=== PATIENT | female | born 1950 | race Caucasian/White ===

== ENCOUNTER 2016-04-02 17:31 | Inpatient (IN) | payer OTHER ==
[~2016-04-02] VITALS: Ht 157.5 cm; Wt 49.9 kg
[~2016-04-02 17:31] MED LIST: ALENDRONATE SOD70 M2 PO; CALCIUM 500 +1 EAC5 PO; CO Q-10100 MG PO; LEVOTHYROXINE25 MCG PO; LEVOTHYROXINE50 MCG PO; RED YEAST RICE600 M1 PO; VITAMIN B-121000 MC3 PO; VITAMIN C500 M7 PO; VITAMIN D3400 UNI1 PO
--- NOTE | 2016-04-02 17:48 | NUR ---
PT STATES HER DOG BIT HER THIS AMD AND SHE WENT TO THE URGENT CARE AND WAS GIVEN AUGMENTIN 875 AND TOOK ONE PILL. PT STATES HER FINGER IS MORE SWOLLEN AND RED. PT STATES HER DOG WAS UP TO DATE WITH HIS VACCINATIONS.
--- NOTE | 2016-04-02 18:11 | NUR ---
APPRECIATE TRIAGE NOTE. PT AMBULATORY TO ROOM 5. AWAITING PROVIDER EVAL.
--- NOTE | 2016-04-02 19:05 | NUR ---
BLOOD DRAWN AND SENT TO THE LAB 2 SETS OF CULTURES CBC
--- NOTE | 2016-04-02 19:12 | RADIOLOGY REPORT ---
EXAMINATION: XR HAND, LEFT CLINICAL INFORMATION: Status post dog bite COMPARISON: None TECHNIQUE: AP, lateral, and oblique views of the left hand. FINDINGS: There are mild degenerative changes at the involving the DIP joint of the third digit. The bones and soft tissues are unremarkable. No fracture. Alignment is anatomic. Joint spaces are maintained. No erosions or soft tissue calcifications. IMPRESSION: No radiographic evidence for acute injury involving the left hand.
[2016-04-02 19:14] LABS: ABSOLUTE BASOPHIL COUNT 0 /CUMM (0.0-0.2); ABSOLUTE EOSINOPHIL COUNT 0 /CUMM (0.0-0.7); ABSOLUTE GRANULOCYTE CT 6.1 /CUMM (1.4-6.5); ABSOLUTE LYMPH COUNT 0.9 /CUMM (1.2-3.4); ABSOLUTE MONOCYTE COUNT 0.7 /CUMM (0.10-0.60); BASOPHIL % 0.2 % (0.0-2.0); EOSINOPHIL % 0.3 % (0-5); GRANULOCYTE % 79.3 % (42.2-75.2); MEAN CORPUSCULAR HGB 31.6 PG (27.0-31.0); MEAN CORPUSCULAR HGB CONC 33.6 G/DL (33.0-37.0); MEAN CORPUSCULAR VOLUME 94.3 FL (81.0-99.0); MEAN PLATELET VOLUME 7.5 FL (7.4-10.4); PLATELET COUNT 352 /CUMM (130-400); RBC DISTRIBUTION WIDTH 12.8 % (11.5-14.5); RED BLOOD CELL CT 4.03 /CUMM (4.20-5.40); WHITE BLOOD CELL COUNT 7.7 /CUMM (4.8-10.8)
--- NOTE | 2016-04-02 19:21 | NUR ---
LINE EST #20 TO RF. MEDICATED PER EMAR.
--- NOTE | 2016-04-02 19:44 | ED GENERAL ADULT ---
History of Present Illness General Chief Complaint: Animal/Insect Bite Stated Complaint: DOG BITE Source: patient Exam Limitations: no limitations Vital Signs & Intake/Output Vital Signs & Intake/Output Vital Signs Date Time Temp Pulse Resp B/P Pulse O2 O2 Flow FiO2 Ox Delivery Rate 04/02 2247 96.7 100 18 140/70 99 04/029 98.1 77 18 124/66 99 Room Air Room Air 04/02 2027 97.6 87 18 138/72 99 Room Air Room Air 04/02 1749 97.1 108 16 150/75 99 Room Air Allergies Coded Allergies: NO KNOWN ALLERGIES (09/28/10) Triage Note: PT STATES HER DOG BIT HER THIS AMD AND SHE WENT TO THE URGENT CARE AND WAS GIVEN AUGMENTIN 875 AND TOOK ONE PILL. PT STATES HER FINGER IS MORE SWOLLEN AND RED. PT STATES HER DOG WAS UP TO DATE WITH HIS VACCINATIONS. HPI: This is a 65 yo very pleasent lady who presents for evaluation of her left hand after a dog bite that happened last night around 8:30pm (04/01/2016). She reported swelling at the dorsal area of her digitus medius. Today in the morning , she decided to go to Urgent care for evaluation and was sent home with an Rx for Augmentin 875mg. She now present to [place] ED in the evening after she had noticed her erythema had spread from her phalangeal area to her metacarpal area. Pt reports pain and some mild pressure on her affected hand. She denies any fever/chills. Patient states that her dog has always been up to date with her vaccination including rabies, the dog was put down today after patient's decision. Of note, pt was bitten on her right arm by the same dog in january, was admitted to [facility] floor at [place] and transferred the same night to [facility] for evaluation of possible compartment syndrome. Pt denies any dizziness,altered mentation,chest pain, palpitation, or shortness of breath. (SANTO SARMIENTO,AUDRA) Reconcile Medications Alendronate Sodium 70 MG TABLET 1 TAB PO QTUES BONES (Reported) in the morning, at least 30 minutes before the first food, beverage, or medication of the day Ascorbic Acid (Vitamin C) 500 MG CAPSULE.ER 1 CAP PO DAILY SUPPLEMENT ( Reported) Calcium Carbonate/Vitamin D3 (Calcium 500 + D Tablet) 500 MG-400 TABLET 1 TAB PO BID BONE HEALTH (Reported) Cholecalciferol (Vitamin D3) (Vitamin D3) 400 UNIT TABLET 1 TAB PO DAILY BONE HEALTH (Reported) Cyanocobalamin (Vitamin B-12) 1,000 MCG TABLET 1 TAB PO DAILY SUPPLEMENT ( Reported) Levothyroxine Sodium 50 MCG TABLET 1 TAB PO DAILY THYROID (Reported) Multivitamin (Daily Value) 1 EACH TABLET 1 TAB PO DAILY SUPPLEMENT (Reported) Red Yeast Rice 600 MG CAPSULE 2 CAP PO DAILY HEART HEALTH (Reported) Ubidecarenone (Co Q-10) 100 MG CAPSULE 1 TAB PO DAILY HEART HEALTH (Reported) Triage Nurses Notes Reviewed? yes Onset: Gradual Duration: day(s): Timing: recent history Injury Environment: home Severity: moderate Modifying Factors: Improves With: rest. Associated Symptoms: redness, swelling around left 3rd mcp joint (WOODY SARMIENTO,JOSE ANGEL Sosa) Past History Travel History Traveled to [place] past 21 day No Medical History Neurological: NONE EENT: NONE Cardiovascular: NONE Respiratory: NONE Gastrointestinal: NONE Hepatic: NONE Renal: NONE Musculoskeletal: NONE Psychiatric: NONE Endocrine: HYPOTHYROID Blood Disorders: NONE Cancer(s): NONE LINER CHECKER/Reproductive: NONE History of MRSA: No History of VRE: No History of CDIFF: No Tetanus Vaccine: 01/30/16 Surgical History Surgical History: hysterectomy Psychosocial History Who do you live with Family Services at Home None What is your primary language Greenlandic Tobacco Use: Never used ETOH Use: occasional use Illicit Drug Use: denies illicit drug use Family History Family History, If Any: MOTHER FH: lung cancer FATHER FH: hypertension (AUDRA BLANCHARD MD) Medical History Any Pertinent Medical History? see below for history Family History Hx Contributory? No (WOODY SARMIENTO,JOSE ANGEL Sosa) Review of Systems Review of Systems Constitutional: Denies: see HPI, chills. EENTM: Denies: blurred vision, double vision. Respiratory: Denies: cough, hemoptysis, orthopnea. Cardiovascular: Denies: chest pain, edema, orthopena. GI: Denies: abdominal pain, bloating, constipation. Genitourinary: Denies: dysuria, frequency, hematuria. Musculoskeletal: Reports: joint swelling. Skin: Reports: erythema. Neurological/Psychological: Denies: confusion, depressed, dementia. Hematologic/Endocrine: Denies: bruising, bleeding. (AUDRA BLANCHARD MD) Physical Exam Physical Exam General Appearance: well developed/nourished, no apparent distress Head: atraumatic, normal appearance Eyes: Bilateral: normal appearance. Ears, Nose, Throat: normal pharynx, normal ENT inspection Neck: normal inspection, supple Respiratory: normal breath sounds, no respiratory distress Cardiovascular: regular rate/rhythm Peripheral Pulses: 2+ radial (R), 2+ radial (L) Gastrointestinal: soft, non-tender Extremities: middle finger of left arm is erythematous, appears swollen with two distinct sotelo on the dorsum aspect, warm and tender to touch. No purulent discharge noted. Sensation intact, and ROM of the affected middle finger is intact woth no limitation. Reflexes: 2+: bicep (R), bicep (L), tricep (L), tricep (L). Skin: erythematous on dorsal aspect of left hand. Lymphatic: no anterior cervical edna, axilla node tender (L) (SANTO SARMIENTO,[facility]) Core Measures ACS in differential dx? No CVA/TIA Diagnosis: No Severe Sepsis Present: No Septic Shock Present: No (WOODY SARMIENTO,JOSE ANGEL Sosa) Progress Differential Diagnoses I considered the following diagnoses in my evaluation of the patient: Dog bite reaction, cellulitis, tendonitis, osteomyleitis,compartment sydrome. Plan of Care: Orders Procedure Date/time Status Regular Diet 04/03 B Active CBC WITHOUT DIFFERENTIAL 04/03 0600 Active BASIC ELECTROLYTES PLUS BUN&CR 04/03 0600 Active Vital Signs 04/02 2243 Active Teach/Educate 04/02 2243 Active Nutritional Intake, Monitor 04/02 2243 Active Isolation 04/02 2243 Active Intake & Output 04/02 2243 Active Patient Care Conference 04/02 2243 Active Activity/Ambulation 04/02 2243 Active Pathway - chart 04/02 2139 Active Code Status 04/02 2139 Active BASIC ELECTROLYTES PLUS BUN&CR 04/02 2124 Complete Patient Data 04/02 2119 Active Saline Lock 04/02 2110 Active Misc Message 04/02 2110 Active ED Holding Orders 04/02 2110 Active Admit to inpatient 04/02 2110 Active Vital Signs 04/02 2110 Complete Code Status 04/02 2110 Complete BLOOD CULTURE 04/02 1839 Active CBC WITHOUT DIFFERENTIAL 04/02 1829 Complete Intake & Output 04/02 1811 Active House Staff 04/02 UNK Active VTE Mechanical Prophylaxis 04/02 UNK Active Vital Signs 04/02 UNK Active Elevate 04/02 UNK Active Current Medications Sig/Tata Start time Last Medication Dose Stop Time Status Admin Alendronate Sodium 70 MG QTUES 04/04 0700 AC (Fosamax) Cholecalciferol 400 IU DAILY 04/03 1000 AC (Vitamin D) Cyanocobalamin 1,000 MCG DAILY 04/03 1000 AC (Vitamin B12) Enoxaparin Sodium 40 MG DAILY 04/03 1000 AC (Lovenox) Multivitamins 1 TAB DAILY 04/03 1000 AC Therapeutic (Theragran-M Vitamins Tabs) Levothyroxine Sodium 0.05 MG DAILY AC 04/03 0700 AC (Synthroid) Ampicillin Sodium/ 3,000 MG Q6H 04/03 0100 AC Sulbactam Sodium (Unasyn) Sodium Chloride 100 ML (Normal Saline 0.9%) Morphine Sulfate 2 MG Q4P PRN 04/02 2144 AC (Morphine) Oxycodone HCl 5 MG Q6H PRN 04/02 2144 AC (Roxicodone) Laboratory Tests 04/02/162156: Anion Gap 9, Estimated GFR > 60, BUN/Creatinine Ratio 16.7 04/02/161855: CBC w Diff NO MAN DIFF REQ, RBC 4.03 L, MCV 94.3, MCH 31.6 H, RDW 12.8, MPV 7.5, Gran % 79.3 H, Lymphocytes % 11.5 L, Monocytes % 8.7, Eosinophils % 0.3, Basophils % 0.2, Absolute Granulocytes 6.1, Absolute Lymphocytes 0.9 L, Absolute Monocytes 0.7 H, Absolute Eosinophils 0, Absolute Basophils 0, PUBS MCHC 33.6 Microbiology 04/02 1855 BLOOD: Blood Culture - RECD 04/02 1841 BLOOD: Blood Culture - RECD Initial ED EKG: none (SANTO SARMIENTO,AUDRA) Differential Diagnoses I considered the following diagnoses in my evaluation of the patient: Diagnostic Imaging: Viewed by Me: Radiology Read. Discussed w/RAD: Radiology Read. Radiology Impression: hand xray - unremarkable Comments: PATIENT: MILLICENT MENDOZA PRESENT AGE: 65 PATIENT ACCOUNT NO: [id number] : 51 LOCATION: [facility] ORDERING PHYSICIAN: AUDRA BLANCHARD MD SERVICE DATE: 04/02/16-1841 EXAM TYPE: RAD - XRY-HAND, LEFT EXAMINATION: XR HAND, LEFT CLINICAL INFORMATION: Status post dog bite COMPARISON: None TECHNIQUE: AP, lateral, and oblique views of the left hand. FINDINGS: There are mild degenerative changes at the involving the DIP joint of the third digit. The bones and soft tissues are unremarkable. No fracture. Alignment is anatomic. Joint spaces are maintained. No erosions or soft tissue calcifications. IMPRESSION: No radiographic evidence for acute injury involving the left hand. DICTATED BY: CAROL ANNA MD DATE/TIME DICTATED:04/02/161902 [employer] CARET[employer]ER:VIDA DATE/TIME TRANSCRIBED:04/02/161902 CONFIDENTIAL, DO NOT COPY WITHOUT APPROPRIATE AUTHORIZATION. <Electronically signed in Other Vendor System> SIGNED BY: CAROL ANNA MD 04/02/161911 (WOODY SARMIENTO,JOSE ANGEL Sosa) Departure Departure Condition: Stable Clinical Impression Primary Impression: Dog bite Secondary Impressions: Cellulitis Ruled Out Impressions: Foreign bodies Referrals: JOANA SARMIENTO,CANDELARIO (PCP/Family) Additional Instructions: Please seek immediate attention if your finger/hand swelling and rash worsens or you develop a fever. Please continue taking the prescribed Augmentin from urgent care till all taken. Departure Forms: Customer Survey General Discharge Information (SANTO SARMIENTO,AUDRA) Departure Disposition: HOME OR SELF CARE Admission Note Spoke With: ELICEO HANSON MD Documentation of Exam: Documentation of any treatments & extenuating circumstances including Concerns Regarding Discharge (functional status, medication knowledge or non-compliance, living conditions, etc.) that warrant an admission rather than observation: Upon initial evaluation, pt had localized erythema around 3rd mcp joint. However, while in the ED, she began having lymphangitic spread up her left arm. Given she had been on oral antibiotics already, this represents a failure of outpatient antibiotics, as well as rapid spread of her infection. IV antibiotics are warranted. No sign of compartment syndrome. Resident Co-Sign Statement Statement: ED Attending supervision documentation- [x] I saw and evaluated the patient. I have also reviewed all the pertinent lab results and diagnostic results. I agree with the findings and the plan of care as documented in the Resident's documentation. Upon initial evaluation, pt had localized erythema around 3rd mcp joint. However, while in the ED, she began having lymphangitic spread up her left arm. Given she had been on oral antibiotics already, this represents a failure of outpatient antibiotics, as well as rapid spread of her infection. IV antibiotics are warranted. No sign of compartment syndrome. [] I have reviewed the ED Record and agree with the Resident's documentation. [] Additions or exceptions (if any) to the Resident's note and plan are summarized below: [] (WOODY SARMIENTO,JOSE ANGEL Sosa) Critical Care Note Critical Care Note Critical Care Time: non-applicable (SANTO SARMIENTO,AUDRA)
--- NOTE | 2016-04-02 20:52 | NUR ---
PT CLEARED FOR DISCHARGE BY EXPRESSING CONCERN OVER NEW RED STREAKING GOING UP LEFT WRIST AND FOREARM. DR. PARRA TO BEDSIDE FOR EVAL.
--- NOTE | 2016-04-02 21:19 | NUR ---
HOUSE STAFF TO BEDSIDE FOR EVAL.
--- NOTE | 2016-04-02 21:33 | NUR ---
PT GOING TO ROOM [id number].
[2016-04-02] MEDS ORDERED: DAILY VALUE1 EACH PO (21:35)
--- NOTE | 2016-04-02 21:50 | History & Physical ---
ADAIR QUACH MD 04/02/16 7450: General Information and HPI MD Statement: I have seen and personally examined MILLICENT MENDOZA and documented this H&P. The patient is a 65 year old F who presented with a patient stated chief complaint of [Dog bite]. Source of Information: patient, old records, EMS Exam Limitations: no limitations History of Present Illness: Patient is a 65 YO F with PMH significant for dog bite (sent to [facility]), Hypothyroidism, osteopenia came to the ER with erythema, swelling of left hand after her blind dog bite. Yesterday evening her dog bit her after getting frightened for unknown reasons. She found her hand started swelling and erythematous spreading from the tip to the hand. She took for one dose of augmentin at home and reached to ER for further evaluation. OF note: Patient admitted to ER back in 01/30/2016 for similar condition but on her right hand, transfered to [facility] as we dont have Plastics (hand surgeon)back up during a weekend schedule. Allergies/Medications Allergies: Coded Allergies: NO KNOWN ALLERGIES (09/28/10) Home Med list Alendronate Sodium 70 MG TABLET 1 TAB PO QTUES BONES (Reported) in the morning, at least 30 minutes before the first food, beverage, or medication of the day Ascorbic Acid (Vitamin C) 500 MG CAPSULE.ER 1 CAP PO DAILY SUPPLEMENT ( Reported) Calcium Carbonate/Vitamin D3 (Calcium 500 + D Tablet) 500 MG-400 TABLET 1 TAB PO BID BONE HEALTH (Reported) Cholecalciferol (Vitamin D3) (Vitamin D3) 400 UNIT TABLET 1 TAB PO DAILY BONE HEALTH (Reported) Cyanocobalamin (Vitamin B-12) 1,000 MCG TABLET 1 TAB PO DAILY SUPPLEMENT ( Reported) Levothyroxine Sodium 50 MCG TABLET 1 TAB PO DAILY THYROID (Reported) Multivitamin (Daily Value) 1 EACH TABLET 1 TAB PO DAILY SUPPLEMENT (Reported) Red Yeast Rice 600 MG CAPSULE 2 CAP PO DAILY HEART HEALTH (Reported) Ubidecarenone (Co Q-10) 100 MG CAPSULE 1 TAB PO DAILY HEART HEALTH (Reported) Compliance With Home Meds: FAIR Past History Travel History Traveled to [place] past 21 day No Medical History Neurological: NONE EENT: NONE Cardiovascular: NONE Respiratory: NONE Gastrointestinal: NONE Hepatic: NONE Renal: NONE Musculoskeletal: NONE Psychiatric: NONE Endocrine: HYPOTHYROID Blood Disorders: NONE Cancer(s): NONE PARACHUTE HARNESS RIGGER/Reproductive: NONE History of MRSA: No History of VRE: No History of CDIFF: No Tetanus Vaccine: 01/30/16 Surgical History Surgical History: hysterectomy Past Family/Social History Family History Relations & Conditions if any MOTHER FH: lung cancer FATHER FH: hypertension Psychosocial History Where do you live? Home Who Do You Live With? self Services at Home: None Primary Language: Irish ETOH Use: occasional use Illicit Drug Use: denies illicit drug use Living Will? yes Power of Control Center Operator/HCP? yes Name of POA/HCP: Michelle Functional Ability ADLs Independent: dressing, eating, toileting, bathing. Ambulation: independent IADLs Independent: shopping, housework, finances, food prep, telephone, transportation , medication admin. Employment History Employment Retired Review of Systems Review of Systems Constitutional: Reports: no symptoms, see HPI. EENTM: Reports: see HPI. Cardiovascular: Reports: no symptoms. Respiratory: Reports: see HPI, cough. GI: Reports: no symptoms. Genitourinary: Reports: no symptoms, see HPI. Musculoskeletal: Reports: joint pain. Skin: Reports: change in skin color, erythema. Neurological/Psychological: Reports: no symptoms. Hematologic/Endocrine: Reports: no symptoms. Immunologic/Allergic: Reports: no symptoms. All Other Systems: Reviewed and Negative Comments ROS negative except the above Exam & Diagnostic Data Last 24 Hrs of Vital Signs/I&O Vital Signs Date Time Temp Pulse Resp B/P Pulse O2 O2 Flow FiO2 Ox Delivery Rate 04/028 96.7 100 18 140/70 99 04/02 2219 98.1 77 18 124/66 99 Room Air Room Air 04/02 2027 97.6 87 18 138/72 99 Room Air Room Air 04/02 1749 97.1 108 16 150/75 99 Room Air Intake & Output 04/03 0800 04/03 0000 04/02 1600 Intake Total 1100 Output Total Balance 1100 Intake, IV 1100 Patient 49.895 kg Weight Physical Exam General Appearance Alert, Oriented X3, Cooperative, No Acute Distress Skin No Breakdown, Significant swelling and erythema around left middle finger extending to the hand HEENT Atraumatic, PERRLA, EOMI Neck Supple, No JVD Cardiovascular Regular Rate, Normal S1, Normal S2, No Murmurs Lungs Clear to Auscultation, Normal Air Movement Abdomen Normal Bowel Sounds, Soft, No Tenderness Neurological Normal Gait, Normal Speech, Strength at 5/5 X4 Ext, Normal Tone Extremities No Clubbing, No Cyanosis, No Edema Assessment/Plan Assessment: Patient is a 65 YO F with PMH significant for dog bite (sent to [facility]), Hypothyroidism, osteopenia came to the ER with erythema, swelling of left hand after her blind dog bite. ER Vital signs Temp of 97.1, RR 16, BP 150/75mmHg, Pulse 108, on room air Labs are unremarkable Left hand X ray shows No radiographic evidence for acute injury involving the left hand. Patient received a single dose of IV unasyn in ER and admitted to general medicine floor for further management Plan Cellulitis secondary to Dog bite in left middle finger * Significant erythema and swelling over the left finger spreading to the hand * Started on IV unasyn, started getting better * F/U blood cultures * Plastic surgery consult in the am History of hypothyroidism * Continue her home dose of levothyroxine History of osteopenia * On fosamax every sunday 70mg * Please continue her home schedule DVT Prophylaxis * SC lovenox Code status * Full Code As Ranked By This Provider Problem List: 1. Dog bite of hand 2. Cellulitis Core Measures/Miscellaneous Acute Coronary Syndrome ACS Diagnosis: No Cerebrovascular Accident CVA/TIA Diagnosis: No Congestive Heart Failure CHF Diagnosis: No Venous Thromboembolism VTE Risk Factors: Immobility, paresis VTE Prophylaxis Ordered Inpt: Pharm- Lovenox No Mech VTE prophylaxis d/t: No contraindications No VTE Pharm Prophylaxis d/t: No contraindications VTE Diagnosis: No VTE Type: NONE VTE Confirmed by (Test): NONE Severe Sepsis Severe Sepsis Present: No Septic Shock Septic Shock Present: No Miscellaneous Documentation Attending Case Discussed With: ELICEO HANSON MD Primary Care Physician: CANDELARIO BERNARD MD Patient sees these Specialists Unknown Level of Patient Care: General Medicine KHUSHI SHAH MD 04/02/16 0254: Resident Review Statement Resident Statement: examined this patient, discussed with marketing pr intern, agreed with marketing pr intern, discussed with family, reviewed EMR data (avail), reviewed images, amended to note Other Findings: This is 65 year female with past medical history of hypothyroidism, osteopenia who was recently admitted to [facility] in 2015 for dog bite of the right hand requiring IV antibiotic and transfer to [place] due to concern for compartment syndrome where she was treated medically with significant improvement of cellulitis now comes from home after bitten by the same dog a day prior to admission with increase redness and swelling of middle finger of left hand. Patient noted that her dog went blind 1 week prior to admission and since then he's been very anxious and yesterday in evening he bit to her middle finger of left hand without any provocation. Patient had tetanus shot in January 2016 and she claims her dog has been appropriately vaccinated. This morning when she woke up she noted swelling around her distal middle finger which progressed to proximal part of middle finger with significant redness associated with mild throbbing pain 4/10 in severity. She denies any fever, chills, headache, nausea , vomiting, abdominal pain, change in vision or any purulent discharge from the wound. Patient took 1 dose of Augmentin 875 mg in the morning. Vitals on admission were T 97.1, HR 108, RR 16, BP 150/75, O2 sat 99% on room air. On physical exam patient is alert oriented 3 in no acute distress, HEENT PERRLA EOMI, neck supple, heart S1-S2 normal without murmur, lungs clear on auscultation, abdomen soft nontender nondistended with preserved bowel sounds, noted dog bite caty at distal middle finger of left hand with surrounding swelling extending up to proximal part of the middle finger extending to the dorsal aspect of the hand, with preserved range of motion and sensation, no peripheral edema no focal gross neuro deficit. Labs revealed white count of 7.7, H&H 12.7/38, platelet 352 Left hand x-ray did not reveal any radiographic evidence of acute in injury involving the left hand Assessment: This is 65-year-old female with past medical history of hypothyroidism and osteopenia presented from home after had unprovoked dog bite at left middle finger with associated redness and swelling extending to the proximal part of middle finger and dorsal aspect of the hand with preserved range of motion and sensation admitted for dog bite associated cellulitis. 1. Cellulitis/dog bite of left middle finger - Admit to general medicine floor - Follow-up blood culture - Continue IV Unasyn 3 g every 6 hours - Plastic surgery/hand surgeon consult in a.m. - Monitor for signs of severe infection increasing swelling/fever/change in sensation or blood supply - Monitor WBC - Elevate hand 2. Hypothyroidism Continue home dose levothyroxine 50 g daily 3. Osteopenia Continue home dose Fosamax 70 mg every Sunday, calcium supplement and vitamin D supplement 4. DVT prophylaxis Subcutaneous Lovenox 5. Full code ELICEO HANSON 04/03/16 0327: Attending MD Review Statement Attending Statement Attending MD Statement: examined this patient, discuss w/resident/PA/HOOKER INSPECTOR, agreed w/resident/PA/HOOKER INSPECTOR, reviewed EMR data (avail), reviewed images, amended to note Attending Assessment/Plan: CC: Dog bite, worsening inflammation on middle finger left hand (third digit) PMH: Hypothyroidism Patient had a dog bite on middle finger yesterday, dog went blind and he was very anxious (this second bite in 2 months, she put him to sleep today. She lost her 8 months back, difficult coping). Patient started to notice redness and inflammation around the middle finger, so she went to urgent care where she was started on Augmentin. she took 1 dose early this morning but swelling and redness worsened so she came to ER. Initial plan in ER was to give 1 dose of Unasyn, and discharge but within 3 hours her redness progressively worsened so was decided to admit. Vitals: Afebrile, tachycardic, RRR, HR, O2 saturation within acceptable range On exam: A O 3, pretty anxious, no acute distress, neck supple, no lymphadenopathy, mucosa moist. CVS: S1-S2, RRR. RS: Clear air entry bilaterally present. Abdomen: Soft, nontender, bowel sounds present. No focal neurological deficit. Local exam: she has bite sotelo on dorsal aspect distally, middle finger is red, warm, swollen extending up to metacarpophalangeal joint, range of motion for proximal and distal interphalangeal joint is decreased, range of motion for metacarpal phalangeal joint intact, perfusion intact, no obvious swelling of the palm or dorsal aspect of hand. Labs: WBC 7.7 but granulocytes 79%, BMP unremarkable. X-ray left hand: No radiographic evidence of acute injury A and P #1 dog bite: Associated cellulitis and inflammation, continue Unasyn, blood cultures, inflammation is marked, follow-up in 2-3 hours, if worsening then add vancomycin, hand/plastic surgery consult tomorrow. Repeat BMP in a.m.. Elevation of hand. #2 hypothyroidism: continue home doses of levothyroxine #3 DVT prophylaxis with Lovenox, adequate pain control
--- NOTE | 2016-04-02 22:00 | NUR ---
BLOOD DRAWN AND SENT TO [facility]
--- NOTE | 2016-04-02 22:19 | NUR ---
REPORT GIVEN TO MOUNA REY. [facility] CALLED FOR PT TRANSPORT.
[2016-04-02 22:48] VITALS: BP 140/70
--- NOTE | 2016-04-03 03:29 | Admission Certification ---
Admission Certification Certification Statement - As attending physician, I certify that at the time of - admission, based on clinical presentation, severity of - symptoms, need for further diagnostic testing and - therapeutic interventions, and risk of adverse outcomes - without in-hospital treatment, in my clinical assessment, - this patient requires an acute hospital stay for a minimum - of two nights or longer. I have also considered psychsocial - factors such as support system, advanced age, financial - issues, cognitive issues, and failed out-patient treatments, - past re-admission history, safety of patient, and lack of - compliance as applicable. Specific rationale supporting this admission is: Dog bite, left third finger cellulitis
[2016-04-03 06:54] VITALS: BP 110/60
--- NOTE | 2016-04-03 07:44 | PN- Housestaff ---
SANTOSH YANG 04/03/16 0744: Subjective Follow-up For: Cellulitis/dog bite of left middle fingerdue to animal(dog) bite Subjective: Patient seen and examined the morning seemed better, slept well overnight remained afebrile overnight, swelling in the left hand is getting better. Reports 4/10 pain around the bite site getting Tylenol as needed for moderate pain. Blood cultures are still pending. Continue with IV Unasyn pending culture results. Review of Systems Constitutional: Denies: chills, diaphoresis, fever. EENTM: Denies: blurred vision, double vision, eye pain. Cardiovascular: Denies: chest pain, edema, orthopena. Respiratory: Denies: cough, hemoptysis, orthopnea, short of breath. Gastrointestinal: Denies: abdominal pain, bloating. Objective Last 24 Hrs of Vital Signs/I&O Vital Signs Date Time Temp Pulse Resp B/P Pulse O2 O2 Flow FiO2 Ox Delivery Rate 04/03 0654 97.9 79 19 110/60 98 Room Air 04/02 2248 96.7 100 18 140/70 99 04/02 2219 98.1 77 18 124/66 99 Room Air Room Air 04/028 97.6 87 18 138/72 99 Room Air Room Air 04/02 1749 97.1 108 16 150/75 99 Room Air Intake & Output 04/03 1600 04/03 0800 04/03 0000 Intake Total 1100 Output Total Balance 1100 Intake, IV 1100 Patient 110 lb Weight Physical Exam General Appearance: Alert, Oriented X3 Skin: No Rashes, No Breakdown HEENT: Atraumatic Cardiovascular: Regular Rate, Normal S1, Normal S2 Lungs: Clear to Auscultation Abdomen: Normal Bowel Sounds, Soft Neurological: Normal Speech, Strength at 5/5 X4 Ext, Normal Tone Extremities: No Clubbing, No Cyanosis, No Edema Current Medications: Current Medications Sig/Tata Start time Last Medication Dose Route Stop Time Status Admin Acetaminophen 650 MG Q6P PRN 04/02 2145 AC 04/03 PO 0632 Alendronate Sodium 70 MG QTUES 04/04 0700 AC PO Ampicillin Sodium/ 3,000 MG Q6H 04/03 0100 AC 04/03 Sulbactam Sodium IV 0627 Sodium Chloride 100 ML Ampicillin Sodium/ 3,000 MG Q6 04/02 2359 DC Sulbactam Sodium IV Sodium Chloride 100 ML Ampicillin Sodium/ 0 .STK-MED ONE 04/02 1955 DC Sulbactam Sodium .ROUTE Ampicillin Sodium/ 3,000 MG ONCE ONE 04/02 1900 DC 04/02 Sulbactam Sodium IV 04/02 1928 192 Sodium Chloride 100 ML Cholecalciferol 400 IU DAILY 04/03 1000 AC PO Cyanocobalamin 1,000 MCG DAILY 04/03 1000 AC PO Enoxaparin Sodium 40 MG DAILY 04/03 1000 AC SC Levothyroxine Sodium 0.05 MG DAILY AC 04/03 0700 AC 04/03 PO 0627 Morphine Sulfate 2 MG Q4P PRN 04/02 2144 AC IV Multivitamins 1 TAB DAILY 04/03 1000 AC Therapeutic PO Oxycodone HCl 5 MG Q6H PRN 04/02 2144 AC PO Sodium Chloride 1,000 ML BOLUS ONE 04/02 184 DC 04/02 IV 04/02 Last 24 Hrs of Lab/Dixon Results Last 24 Hrs of Labs/Mics: Laboratory Tests 04/03/16 0624: Anion Gap 8, Estimated GFR > 60, BUN/Creatinine Ratio 16.7, CBC w Diff Pending, WBC Pending, RBC Pending, Hgb Pending, Hct Pending, MCV Pending, MCH Pending, RDW Pending, Plt Count Pending, MPV Pending, PUBS MCHC Pending 04/02/162156: Anion Gap 9, Estimated GFR > 60, BUN/Creatinine Ratio 16.7 04/02/161855: CBC w Diff NO MAN DIFF REQ, RBC 4.03 L, MCV 94.3, MCH 31.6 H, RDW 12.8, MPV 7.5, Gran % 79.3 H, Lymphocytes % 11.5 L, Monocytes % 8.7, Eosinophils % 0.3, Basophils % 0.2, Absolute Granulocytes 6.1, Absolute Lymphocytes 0.9 L, Absolute Monocytes 0.7 H, Absolute Eosinophils 0, Absolute Basophils 0, PUBS MCHC 33.6 Microbiology 04/02 1855 BLOOD: Blood Culture - RECD 04/02 1841 BLOOD: Blood Culture - RECD Assessment/Plan Assessment: This is 65-year-old female with past medical history of hypothyroidism and osteopenia presented from home after had unprovoked dog bite at left middle finger with associated redness and swelling extending to the proximal part of middle finger and dorsal aspect of the hand with preserved range of motion and sensation admitted for dog bite associated cellulitis. Vitals on admission were T 97.1, HR 108, RR 16, BP 150/75, O2 sat 99% on room air. Labs revealed white count of 7.7, H&H 12.7/38, platelet 352 Left hand x-ray did not reveal any radiographic evidence of acute in injury involving the left hand. Assessment and plan 1. Cellulitis/dog bite of left middle finger: * Continue to monitor on [facility] floor * Continue with IV Unasyn 3 g every 6 hours, pending blood cultures. * We will obtain plastic surgery surgery consult with Dr. Buchanan([phone]) * Monitor vitals every 4 hours. * Mild to moderate pain controlled with Tylenol * Continue with an elevation. * Monitor for signs of severe infection increasing swelling/fever/change in sensation or blood supply * Monitor WBC 2. Hypothyroidism * Continue home dose levothyroxine 50 g daily 3. Osteopenia * Continue home dose Fosamax 70 mg every Sunday, calcium supplement and vitamin D supplement 4. DVT prophylaxis * Subcutaneous Lovenox 5. Full code Problem List: 1. Cellulitis 2. Dog bite Pain Ratin Pain Location: Left hand Pain Goal: Remain pain free Pain Plan: When necessary Tylenol Tomorrow's Labs & Rationales: No need of labs tomorrow MICHAEL ST MDESHA 04/03/16 1028: Attending MD Review Statement Attending Statement Attending MD Statement: examined this patient, discuss w/resident/PA/COMPUTER AIDED DRAFTER, agreed w/resident/PA/COMPUTER AIDED DRAFTER, reviewed EMR data (avail), discussed with nursing, discussed with case mgmt, reviewed images, amended to note Attending Assessment/Plan: Patient seen and examined, feeling slightly better. The left hand is still estimate is an swollen but improved than before. There are bite sotelo on the left middle finger both dorsal and palmar surfaces. Patient does have range of motion at the right middle finger with some limitation.c/o some headache due to lack of sleep. Vital Signs Date Time Temp Pulse Resp B/P Pulse O2 O2 Flow FiO2 Ox Delivery Rate 04/03 0654 97.9 79 19 110/60 98 Room Air 04/02 2247 96.7 100 18 140/70 99 04/02 2218 98.1 77 18 124/66 99 Room Air Room Air 04/02 2027 97.6 87 18 138/72 99 Room Air Room Air 04/02 1749 97.1 108 16 150/75 99 Room Air on exam; aox3, nad. cv; s1, s2, rrr. resp; clear. abd; soft, nt, bs+ ext; no edema. skin; the left middle finger is still swollen, erthematous. Has some limited rom. Laboratory Tests 04/03 04/02 0624 2157 Chemistry Sodium (137 - 145 mmol/L) 142 144 Potassium (3.5 - 5.1 mmol/L) 4.0 3.8 Chloride (98 - 107 mmol/L) 108 H 109 H Carbon Dioxide (22 - 30 mmol/L) 26 25 Anion Gap (5 - 16) 8 9 BUN (7 - 17 mg/dL) 10 10 Creatinine (0.5 - 1.0 mg/dL) 0.6 0.6 Estimated GFR (>60 ml/min) > 60 > 60 BUN/Creatinine Ratio (7 - 25 %) 16.7 16.7 Hematology CBC w Diff NO MAN DIFF REQ WBC (4.8 - 10.8 /CUMM) 5.0 RBC (4.20 - 5.40 /CUMM) 3.57 L Hgb (12.0 - 16.0 G/DL) 11.5 L Hct (37 - 47 %) 33.8 L MCV (81.0 - 99.0 FL) 94.9 MCH (27.0 - 31.0 PG) 32.3 H RDW (11.5 - 14.5 %) 13.2 Plt Count (130 - 400 /CUMM) 319 MPV (7.4 - 10.4 FL) 7.8 Gran % (42.2 - 75.2 %) 59.4 Lymphocytes % (20.5 - 51.1 %) 26.6 Monocytes % (1.7 - 9.3 %) 12.2 H Eosinophils % (0 - 5 %) 1.2 Basophils % (0.0 - 2.0 %) 0.6 Absolute Granulocytes (1.4 - 6.5 /CUMM) 3.0 Absolute Lymphocytes (1.2 - 3.4 /CUMM) 1.3 Absolute Monocytes (0.10 - 0.60 /CUMM) 0.6 Absolute Eosinophils (0.0 - 0.7 /CUMM) 0.1 Absolute Basophils (0.0 - 0.2 /CUMM) 0 PUBS MCHC (33.0 - 37.0 G/DL) 34.1 04/02 1855 Hematology CBC w Diff NO MAN DIFF REQ WBC (4.8 - 10.8 /CUMM) 7.7 RBC (4.20 - 5.40 /CUMM) 4.03 L Hgb (12.0 - 16.0 G/DL) 12.7 Hct (37 - 47 %) 38.0 MCV (81.0 - 99.0 FL) 94.3 MCH (27.0 - 31.0 PG) 31.6 H RDW (11.5 - 14.5 %) 12.8 Plt Count (130 - 400 /CUMM) 352 MPV (7.4 - 10.4 FL) 7.5 Gran % (42.2 - 75.2 %) 79.3 H Lymphocytes % (20.5 - 51.1 %) 11.5 L Monocytes % (1.7 - 9.3 %) 8.7 Eosinophils % (0 - 5 %) 0.3 Basophils % (0.0 - 2.0 %) 0.2 Absolute Granulocytes (1.4 - 6.5 /CUMM) 6.1 Absolute Lymphocytes (1.2 - 3.4 /CUMM) 0.9 L Absolute Monocytes (0.10 - 0.60 /CUMM) 0.7 H Absolute Eosinophils (0.0 - 0.7 /CUMM) 0 Absolute Basophils (0.0 - 0.2 /CUMM) 0 PUBS MCHC (33.0 - 37.0 G/DL) 33.6 A/P; 65-year-old female with past medical history significant for hypothyroidism and osteopenia who is admitted with left hand cellulitis secondary to dog bite. Currently getting treated with Unasyn. Follow-up on blood cultures. Plastic surgery consult is pending. Please add melatonin prn for sleep. Continue other current meds. DVT Px; Lovenox. If continue to improve, possibly could be discharged tomorrow.
[2016-04-03 08:17] LABS: ABSOLUTE BASOPHIL COUNT 0 /CUMM (0.0-0.2); ABSOLUTE EOSINOPHIL COUNT 0.1 /CUMM (0.0-0.7); ABSOLUTE LYMPH COUNT 1.3 /CUMM (1.2-3.4); ABSOLUTE MONOCYTE COUNT 0.6 /CUMM (0.10-0.60); BASOPHIL % 0.6 % (0.0-2.0); EOSINOPHIL % 1.2 % (0-5); GRANULOCYTE % 59.4 % (42.2-75.2); HEMATOCRIT 33.8 % (37-47); MEAN CORPUSCULAR HGB 32.3 PG (27.0-31.0); MEAN CORPUSCULAR HGB CONC 34.1 G/DL (33.0-37.0); MEAN CORPUSCULAR VOLUME 94.9 FL (81.0-99.0); MEAN PLATELET VOLUME 7.8 FL (7.4-10.4); PLATELET COUNT 319 /CUMM (130-400); RBC DISTRIBUTION WIDTH 13.2 % (11.5-14.5); RED BLOOD CELL CT 3.57 /CUMM (4.20-5.40)
--- NOTE | 2016-04-03 09:51 | Discharge Summary ---
See Addendum Visit Information Visit Dates Admission Date: 04/02/16 Discharge Date: 04/04/16 Hospital Course Course Attending Physician: Dr. Arteaga Primary Care Physician: JOANA SARMIENTO,[facility] Course: This is 65-year-old female with past medical history of hypothyroidism and osteopenia presented from home after had unprovoked dog bite at left middle finger with associated redness and swelling extending to the proximal part of middle finger and dorsal aspect of the hand with preserved range of motion and sensation admitted for dog bite associated cellulitis. Vitals on admission were T 97.1, HR 108, RR 16, BP 150/75, O2 sat 99% on room air. Labs revealed white count of 7.7, H&H 12.7/38, platelet 352 Left hand x-ray did not reveal any radiographic evidence of acute in injury involving the left hand. Following problems were addressed while patient was on [facility]: 1 .Cellulitis/dog bite of left middle finger: Patient was admitted to [facility], after sending the blood cultures patient was started on IV Unasyn. Received Tylenol for mild to moderate pain. Vitals were checked every 4 hours. Swelling in the left hand improved overnight. Plastic surgery consult with Dr. Buchanan was obtained,recommended to continue with bacitracin ointment and bandaide for 1 week. Blood cultures remained negative. Patient was switched to Augmentin for total of 10 days on discharge. 2. History of hypothyroidism Home dose of Synthroid was continued in the hospital 3. History of osteopenia: Fosamax 70 mg every Sunday, calcium supplement and vitamin D supplement was continued 4. DVT prophylaxis * Subcutaneous Lovenox 5. Full code Allergies: Coded Allergies: NO KNOWN ALLERGIES (09/28/10) Significant Procedures: EXAM TYPE: RAD - XRY-HAND, LEFT EXAMINATION: XR HAND, LEFT CLINICAL INFORMATION: Status post dog bite COMPARISON: None TECHNIQUE: AP, lateral, and oblique views of the left hand. FINDINGS: There are mild degenerative changes at the involving the DIP joint of the third digit. The bones and soft tissues are unremarkable. No fracture. Alignment is anatomic. Joint spaces are maintained. No erosions or soft tissue calcifications. IMPRESSION: No radiographic evidence for acute injury involving the left hand. DICTATED BY: CAROL ANNA MD DATE/TIME DICTATED:01/22/17 / 1903 OCCUP THERAPIST:VIDA DATE/TIME TRANSCRIBED:04/02/161902 CONFIDENTIAL, DO NOT COPY WITHOUT APPROPRIATE AUTHORIZATION. <Electronically signed in Other Vendor System> SIGNED BY: CAROL ANNA MD 04/02/161911 Disposition Summary Disposition Principal Diagnosis: 1Cellulitis/dog bite of left middle finger Additional Diagnosis: None Discharge Disposition: home or self care Discharge Instructions General Discharge Information Code Status: Full Code Patient's Diet: REGULAR DIET Patient's Activity: As tolerated Follow-Up Instructions/Appts: Please follow-up with your PCP within 1-2 weeks after discharge Take the medications as directed Medications at Discharge Discharge Medications: Continue taking these medications: Levothyroxine Sodium (Levothyroxine Sodium) 50 MCG TABLET 1 Tablet ORAL DAILY Qty = 90 Comments: Last Taken: 04/04/16 Time: 6 AM Alendronate Sodium (Alendronate Sodium) 70 MG TABLET 1 Tablet ORAL EVERY SUNDAY Qty = 12 Instructions: in the morning, at least 30 minutes before the first food, beverage, or medication of the day Comments: Last Taken: 04/04/16 Time: 5 AM Cyanocobalamin (Vitamin B-12) 1,000 MCG TABLET 1 Tablet ORAL DAILY Comments: Last Taken: 04/04/16 Time: 9 AM Red Yeast Rice (Red Yeast Rice) 600 MG CAPSULE 2 Capsule ORAL DAILY Comments: NOT GIVEN IN HOSPITAL Ubidecarenone (Co Q-10) 100 MG CAPSULE 1 Tablet ORAL DAILY Comments: NOT GIVEN IN HOSPITAL Ascorbic Acid (Vitamin C) 500 MG CAPSULE.ER 1 Capsule ORAL DAILY Comments: NOT GIVEN IN HOSPITAL Cholecalciferol (Vitamin D3) (Vitamin D3) 400 UNIT TABLET 1 Tablet ORAL DAILY Comments: Last Taken: 04/04/16 Time: 9 AM Calcium Carbonate/Vitamin D3 (Calcium 500 + D Tablet) 500 MG-400 TABLET 1 Tablet ORAL TWICE DAILY Comments: NOT GIVEN IN HOSPITAL Multivitamin (Daily Value) 1 EACH TABLET 1 Tablet ORAL DAILY Comments: Last Taken: 04/04/16 Time: 9AM Start taking the following new medications: Amoxicillin/Potassium Clav (Augmentin 875-125 Tablet) 875 MG-125 MG TABLET 1 Tablet ORAL TWICE DAILY Days = 8 No Refills Comments: NOT GIVEN IN HOSPITAL Copies To: JOANA SARMIENTO,CANDELARIO
[2016-04-03] MEDS ORDERED: AUGMENTIN 875-1 EACH PO (13:03)
--- NOTE | 2016-04-03 13:06 | Patient Discharge Instructions ---
Discharge Instructions General Discharge Information You were seen/treated for: Cellulitis/dog bite of left middle fingerdue to animal(dog) bite Special Instructions: 1. Please follow-up with your PCP within 1-2 weeks after discharge. 2. Please take the medications as directed. 3 Wash hand routinely soap and water cover lacerated areas with bacitracin and Band-Aid daily, one week of bandaging. Patient advised to continue active range of motion to prevent injury from disuse can follow-up with Dr Atkinson(plastic surgeon) if fails to completely resolve. Diet Recommended Diet: Regular Activity Activity Self Limited: Yes Acute Coronary Syndrome Inclusion Criteria At DC or during hospital stay patient has or had the following: ACS DIAGNOSIS No Discharge Core Measures Meds if any: Prescribed or Continued at Discharge Meds if any: NOT Prescribed or Continued at Discharge Congestive Heart Failure Inclusion Criteria At DC or during hospital stay patient has or had the following: CHF DIAGNOSIS No Discharge Core Measures Meds if any: Prescribed or Continued at Discharge Meds if any: NOT Prescribed or Continued at Discharge Cerebrovascular accident Inclusion Criteria At DC or during hospital stay patient has or had the following: CVA/TIA Diagnosis No Discharge Core Measures Meds if any: Prescribed or Continued at Discharge Meds if any: NOT Prescribed or Continued at Discharge Venous thromboembolism Inclusion Criteria VTE Diagnosis No VTE Type NONE VTE Confirmed by (Test) NONE Discharge Core Measures - Per Current guidelines, there needs to be overlap - treatment for the first 5 days of Warfarin therapy. - If discharged on Warfarin prior to 5 days of - overlap therapy, the patient will need to be - assessed for post discharge needs including - *Post discharge parental anticoagulation - *Warfarin and/or parental anticoagulation education - *Follow up date to check INR post discharge At least 5 days overlap therapy as Inpatient No Meds if any: Prescribed or Continued at Discharge Note: Overlap Therapy is Warfarin and Anticoagulant Meds if any: NOT Prescribed or Continued at Discharge
[2016-04-03 13:49] VITALS: BP 116/80
--- NOTE | 2016-04-03 15:00 | NUR ---
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 VSS. NO C/O PAIN, TOLERATING SIPS OF GINGERALE, ALMONTE IN PLACE, LOWER BACK ISLAND DSG W/ SCANT AMT OF BLOODY DRAINAGE INTACT W/ LORIN DRAIN- EMPTIED 60ML OF BLOODY DRAINAGE DSG INTACT, +CMS, + PEDAL PULSES, NO EDEMA NOTED, ALPS IN PLACE, ORIENTED TO CALL LIGHT AND ROOM. REPORT GIVEN TO ONCOMING MOUNA COSTA.
[2016-04-03 22:24] VITALS: BP 100/58
[2016-04-04 06:36] VITALS: BP 116/68
--- NOTE | 2016-04-04 07:30 | PN- Housestaff ---
SANTOSH YANG 04/04/16 0730: Subjective Follow-up For: Cellulitis/dog bite of left middle fingerdue to animal(dog) bite Subjective: Patient seen and examined the morning seemed better, slept well overnight remained afebrile overnight, swelling in the left middle finger and hand much improved than yesterday. I called plastic surgery (Dr. Buchanan's office) yesterday for consult, but patient has not been evaluated yet if needed I'll call the office again. Blood cultures came negative, we'll switch the patient to Augmentin 875 mg twice a day for a total of 10 days. Patient reports some sinus congestion usually takes nasal saline spray and Advil , will continue the medication the hospital. , Review of Systems Constitutional: Denies: chills, diaphoresis, malaise. EENTM: Denies: blurred vision, double vision, visual changes. Cardiovascular: Denies: chest pain, edema, orthopena. Respiratory: Denies: cough, hemoptysis, orthopnea. Gastrointestinal: Denies: abdominal pain, bloating, constipation, diarrhea. Genitourinary: Denies: dysuria, frequency, hematuria. Objective Last 24 Hrs of Vital Signs/I&O Vital Signs Date Time Temp Pulse Resp B/P Pulse O2 O2 Flow FiO2 Ox Delivery Rate 04/04 0636 98.8 79 20 116/68 97 Room Air 04/04 0010 98.9 04/03 2224 99.2 84 20 100/58 98 Room Air 04/03 1349 98.1 80 20 116/80 98 Room Air Intake & Output 04/04 1600 04/04 0800 04/04 0000 Intake Total 540 540 Output Total Balance 540 540 Intake, IV 300 300 Intake, Oral 240 240 Physical Exam General Appearance: Alert, Oriented X3, Cooperative Skin: No Rashes, No Breakdown HEENT: Atraumatic, PERRLA Cardiovascular: Regular Rate, Normal S1, Normal S2 Lungs: Clear to Auscultation, Normal Air Movement Abdomen: Normal Bowel Sounds, Soft Neurological: Normal Speech, Strength at 5/5 X4 Ext, Normal Tone Extremities: No Clubbing, No Cyanosis, No Edema Last 24 Hrs of Lab/Dixon Results Last 24 Hrs of Labs/Mics: Laboratory Tests 04/04/16 0750: CBC w Diff NO MAN DIFF REQ, RBC 3.99 L, MCV 94.9, MCH 32.0 H, RDW 13.1, MPV 7.7, Gran % 67.8, Lymphocytes % 21.0, Monocytes % 9.1, Eosinophils % 1.4, Basophils % 0.7, Absolute Granulocytes 3.8, Absolute Lymphocytes 1.2, Absolute Monocytes 0.5, Absolute Eosinophils 0.1, Absolute Basophils 0, PUBS MCHC 33.7 Assessment/Plan Assessment: This is 65-year-old female with past medical history of hypothyroidism and osteopenia presented from home after had unprovoked dog bite at left middle finger with associated redness and swelling extending to the proximal part of middle finger and dorsal aspect of the hand with preserved range of motion and sensation admitted for dog bite associated cellulitis. Vitals on admission were T 97.1, HR 108, RR 16, BP 150/75, O2 sat 99% on room air. Labs revealed white count of 7.7, H&H 12.7/38, platelet 352 Left hand x-ray did not reveal any radiographic evidence of acute in injury involving the left hand. Assessment and plan 1. Cellulitis/dog bite of left middle finger: * Continue to monitor on [facility] floor * Patient remains afebrile without any leukocytosis , swelling in the left middle finger and hand much improved .Blood cultures came negative patient will get IV Unasyn today and then will switch the patient to by mouth Augmentin 875 mg twice a day for total of 10 days. * I called plastic surgery (Dr. Buchanan's office) yesterday for consult, but patient has not been evaluated yet if needed I'll call the office again.([phone]) * Monitor vitals every 4 hours. * Mild to moderate pain controlled with Tylenol * Continue with an elevation. * 2. Hypothyroidism * Continue home dose levothyroxine 50 g daily 3. Osteopenia * Continue home dose Fosamax 70 mg every Sunday, calcium supplement and vitamin D supplement 4. DVT prophylaxis * Subcutaneous Lovenox 5. Full code Problem List: 1. Dog bite of hand 2. Cellulitis Pain Ratin Pain Location: Left middle finger and hand Pain Goal: Remain pain free Pain Plan: When necessary Tylenol Tomorrow's Labs & Rationales: No need of labs tomorrow patient will be discharged today ALMA ROSA SARMIENTO,VANIA 04/04/16 1346: Attending MD Review Statement Attending Statement Attending MD Statement: examined this patient, discuss w/resident/PA/DRYING OVEN ATTENDANT, agreed w/resident/PA/DRYING OVEN ATTENDANT, reviewed EMR data (avail), discussed with nursing, discussed with case mgmt, reviewed images, amended to note Attending Assessment/Plan: patient seen and examined, overall doing much better. The left middle finger is significantly improved. Surrounding erythema and swelling has improved. She remains afebrile. Range of motion has also improved. Patient has been seen by plastic surgery and Dr. Buchanan recommended oral as well as topical antibiotics with bandage. Patient is doing much better and she is medically stable for discharge home today. She will follow-up with Lois Perry MD as an outpatient.
--- NOTE | 2016-04-04 09:02 | Cons- Plastic Surgery ---
General Information and HPI Consulting Request Date of Consult: 04/04/16 Requested By: ALMA ROSA SARMIENTO,VANIA Reason for Consult: Dog bite cellulitis left nondominant ring finger Source of Information: patient History of Present Illness: Patient bit by her own dog with known history of biting this past Sunday. Had increased pain and redness went to an outpatient facility started on by mouth antibiotics without rapid resolution. He presents to [facility] normal white count with progressive cellulitis edema small open wounds left ring finger no reports of purulent drainage nor lymphangitis. Admitted for intravenous antibiotics. Allergies/Medications Allergies: Coded Allergies: NO KNOWN ALLERGIES (09/28/10) Home Med List: Alendronate Sodium 70 MG TABLET 1 TAB PO QTUES BONES (Reported) in the morning, at least 30 minutes before the first food, beverage, or medication of the day Amoxicillin/Potassium Clav (Augmentin 875-125 Tablet) 875 MG-125 MG TABLET 1 TAB PO BID ANIMAL BITE Ascorbic Acid (Vitamin C) 500 MG CAPSULE.ER 1 CAP PO DAILY SUPPLEMENT ( Reported) Calcium Carbonate/Vitamin D3 (Calcium 500 + D Tablet) 500 MG-400 TABLET 1 TAB PO BID BONE HEALTH (Reported) Cholecalciferol (Vitamin D3) (Vitamin D3) 400 UNIT TABLET 1 TAB PO DAILY BONE HEALTH (Reported) Cyanocobalamin (Vitamin B-12) 1,000 MCG TABLET 1 TAB PO DAILY SUPPLEMENT ( Reported) Levothyroxine Sodium 50 MCG TABLET 1 TAB PO DAILY THYROID (Reported) Multivitamin (Daily Value) 1 EACH TABLET 1 TAB PO DAILY SUPPLEMENT (Reported) Red Yeast Rice 600 MG CAPSULE 2 CAP PO DAILY HEART HEALTH (Reported) Ubidecarenone (Co Q-10) 100 MG CAPSULE 1 TAB PO DAILY HEART HEALTH (Reported) Current Medications: Current Medications Sig/Tata Start time Last Medication Dose Route Stop Time Status Admin Acetaminophen 1,300 MG .STK-MED ONE 04/03 2045 DC PO 04/03 2046 Acetaminophen 650 MG Q6P PRN 04/02 2144 AC 04/03 PO 2048 Alendronate Sodium 70 MG QTUES 04/04 0700 AC 04/04 PO 0549 Ampicillin Sodium/ 3,000 MG Q6 04/04 0600 AC 04/04 Sulbactam Sodium IV 0550 Sodium Chloride 100 ML Ampicillin Sodium/ 3,000 MG Q6H 04/03 0100 DC 04/04 Sulbactam Sodium IV 0011 Sodium Chloride 100 ML Cholecalciferol 400 IU DAILY 04/03 1000 AC 04/03 PO 1049 Cyanocobalamin 1,000 MCG DAILY 04/03 1000 AC 04/03 PO 1049 Enoxaparin Sodium 40 MG DAILY 04/03 1000 AC SC Ibuprofen 400 MG Q4P PRN 04/04 09 UNVr PO Levothyroxine Sodium 0.05 MG DAILY AC 04/03 0700 AC 04/04 PO 0712 Morphine Sulfate 2 MG Q4P PRN 04/02 2145 AC IV Multivitamins 1 TAB DAILY 04/03 1000 AC 04/03 Therapeutic PO 1049 Oxycodone HCl 5 MG Q6H PRN 04/02 2144 AC PO Sodium Chloride 2 SPRAY Q4P PRN 04/04 899 UNVr LUPE Past History Medical History Blood Transfusion Hx: No Neurological: NONE EENT: NONE Cardiovascular: NONE Respiratory: NONE Gastrointestinal: NONE Hepatic: NONE Renal: NONE Musculoskeletal: OSTEOPENIA Psychiatric: NONE Endocrine: HYPOTHYROID Blood Disorders: NONE Cancer(s): NONE SPECIALTY DEVELOPMENT CONSULTANT/Reproductive: ECTOPIC Surgical History Pertinent Surgical History: 1 Family History Relations & Conditions If Any: MOTHER FH: lung cancer FATHER FH: hypertension Psychosocial History Where Do You Live? Home Who Do You Live With? self Services at Home: None Primary Language: Puerto Rican Smoking Status: Never Smoked ETOH Use: occasional use Illicit Drug Use: denies illicit drug use Living Will? yes Power of Lead Fire Protection Engineer/HCP? yes Name of POA/HCP: Michelle Functional Ability ADLs Independent: dressing, eating, toileting, bathing. Ambulation: independent IADLs Independent: shopping, housework, finances, food prep, telephone, transportation , medication admin. Employment History Employment: Retired Review of Systems Review of Systems: All of the systems negative Exam & Diagnostic Data Vital Signs and I&O Vital Signs Date Time Temp Pulse Resp B/P Pulse O2 O2 Flow FiO2 Ox Delivery Rate 04/04 0636 98.8 79 20 116/68 97 Room Air 04/04 0010 98.9 04/03 2224 99.2 84 20 100/58 98 Room Air 04/03 1349 98.1 80 20 116/80 98 Room Air Intake & Output 04/04 1600 04/04 0800 04/04 0000 04/03 1600 04/03 0800 04/03 0000 Intake Total 540 540 427 480 7392 Output Total Balance 540 540 425 979 7361 Intake, IV 300 300 248 542 3855 Intake, Oral 240 240 360 200 Number 0 Bowel Movements Patient 110 lb Weight Physical Exam: No acute distress resting comfortably in bed. Musculoskeletal exam shows the following abnormalities the left hand has resolving of erythema along the ray of the ring finger. Small lacerations with dry eschar along the dorsum overlying the DIP. Range of motion nearly full some limitation secondary to edema and discomfort. No collections or concerns for deeper involvement. X-ray normal. Assessment/Plan Assessment/Plan Resolving cellulitis secondary to dog bite. Continue oral antibiotics. May wash hand routinely soap and water cover lacerated areas with bacitracin and Band-Aid daily likely will only need one week of bandaging. Patient advised to continue active range of motion to prevent injury from disuse can follow-up office if fails to completely resolve. Consult Acknowledgment - Thank you for your consult request.
[2016-04-04 09:17] LABS: ABSOLUTE BASOPHIL COUNT 0 /CUMM (0.0-0.2); ABSOLUTE EOSINOPHIL COUNT 0.1 /CUMM (0.0-0.7); ABSOLUTE GRANULOCYTE CT 3.8 /CUMM (1.4-6.5); ABSOLUTE LYMPH COUNT 1.2 /CUMM (1.2-3.4); ABSOLUTE MONOCYTE COUNT 0.5 /CUMM (0.10-0.60); BASOPHIL % 0.7 % (0.0-2.0); EOSINOPHIL % 1.4 % (0-5); GRANULOCYTE % 67.8 % (42.2-75.2); HEMATOCRIT 37.9 % (37-47); MEAN CORPUSCULAR HGB CONC 33.7 G/DL (33.0-37.0); MEAN CORPUSCULAR VOLUME 94.9 FL (81.0-99.0); MEAN PLATELET VOLUME 7.7 FL (7.4-10.4); PLATELET COUNT 341 /CUMM (130-400); RBC DISTRIBUTION WIDTH 13.1 % (11.5-14.5); RED BLOOD CELL CT 3.99 /CUMM (4.20-5.40); WHITE BLOOD CELL COUNT 5.6 /CUMM (4.8-10.8)
[2016-04-04 14:04] VITALS: BP 112/70
== END 2016-04-04 15:36 | DRG 603 ==
LOC: ENRESERVTM → ENRESERVDT → ERH 17:31 → ENPENDDIS 21:11 → ERHI 21:11 → 2NA 21:11
PROVIDERS: Internal Medicine; Student in an Organized Health Care Education/Training Program; ADMIT Internal Medicine
DX: L03.114 Cellulitis of left upper limb (principal); E03.9 Hypothyroidism, unspecified; S61.253A Open bite of left middle finger without damage to nail, initial encounter; W54.0XXA Bitten by dog, initial encounter; Y92.009 Unspecified place in unspecified non-institutional (private) residence as the place of occurrence of the external cause; M85.80 Other specified disorders of bone density and structure, unspecified site
CPT/HCPCS: 2NASP; 36415; 73130-LT; 82436; 87040; 96365; 96366; J1650